=== PATIENT | female | born 1980 | race Caucasian/White ===

== ENCOUNTER → 2017-12-06 | Outpatient (CLI) | payer OTHER ==
[2017-12-06] MEDS: GADOBUTROL 7.5 MMOL/7.5 ML VIAL IV (08:45)
== END | disposition home or self-care (01) ==
LOC: KCIC MRI 08:02
DX: G57.62 Lesion of plantar nerve, left lower limb (principal)
CPT/HCPCS: 73720; A9585